=== PATIENT | female | born 1985 | race American Indian/Alaskan Native ===

== ENCOUNTER 2017-03-22 11:51 | Outpatient (CLI) | payer BC ==
--- NOTE | 2017-03-22 12:20 | XRay Report ---
ROUTINE CHEST, TWO VIEWS: Bronchitis. PA and lateral views demonstrate the heart and mediastinal contour to be of normal size and shape. The lungs are clear and fully expanded and the soft tissues and bony structures are normal. IMPRESSION: Normal study.
== END 2017-03-22 11:52 | disposition home or self-care (01) ==
LOC: XRAY 11:51
PROVIDERS: ATTEND Internal Medicine
DX: J20.9 Acute bronchitis, unspecified (principal); J45.909 Unspecified asthma, uncomplicated; F17.200 Nicotine dependence, unspecified, uncomplicated
CPT/HCPCS: 71020

== ENCOUNTER 2017-04-18 09:00 | Emergency (ER) | payer BC ==
[2017-04-18 09:50] LABS: Basophils % (Auto) 1.3 % (0.0-1.8); Eosinophils % (Auto) 2.4 % (0.0-4.3); Hematocrit 38.6 % (30.3-42.9); Hemoglobin 13.1 gm/dl (10.1-14.3); Mean Corpuscular HGB Conc 34 % (30-34); Mean Corpuscular Hemoglobin 28 pg (28-32); Mean Corpuscular Volume 83 fl (79-97); Platelet Count 282 K/mm3 (140-440); Red Blood Count 4.65 M/mm3 (3.65-5.03); Red Cell Distribution Width 14.3 % (13.2-15.2); White Blood Count 6.1 K/mm3 (4.5-11.0)
[2017-04-18 10:03] LABS: Anion Gap 16 mmol/L; BUN/Creatinine Ratio 15; Blood Urea Nitrogen 15 mg/dL (7-17); Calcium 8.6 mg/dL (8.4-10.2); Carbon Dioxide 25 mmol/L (22-30); Chloride 101.8 mmol/L (98-107); Glucose 87 mg/dL (65-100); Potassium 4.4 mmol/L (3.6-5.0); Sodium 138 mmol/L (137-145)
[2017-04-18 12:08] VITALS: BP 131/64
[2017-04-18] MEDS ORDERED: TORADOL IM ONE (12:19)
--- NOTE | 2017-04-18 12:24 | Emergency Department Report ---
ED Chest Pain HPI - General Chief Complaint: Chest Pain Stated Complaint: CHEST PAIN AND BACK PAIN Time Seen by Provider: 04/18/17 12:12 Source: patient Mode of arrival: Ambulatory Limitations: No Limitations - History of Present Illness Initial Comments: Patient is a 31 years old female no significant past medical history is coming with left sided chest pain specifically under the left breast that radiated to her back and going on for month now patient increase with movement and decreased mentation remain is still. Patient was seen by her primary care physician she was given a steroid but no improvement, she had a chest x-ray was repeated because by her primary care physician which was unremarkable per patient report. Patient denied any fever ,shortness of breath ,nausea or vomiting. MD Complaint: chest pain -: week(s) Onset: during rest Pain Location: left chest Severity: moderate Severity scale (0 -10): 10 Quality: sharp, dull Consistency: intermittent Improves With: remaining still Worsens With: movement Other Symptoms: denies: cough, fever, syncope, rash, acid taste in mouth, leg swelling, palpitations, burping - Related Data Home Medications Medication Instructions Recorded Confirmed Last Taken Cyclobenzaprine [Flexeril 10 MG 10 mg PO DAILY 04/18/17 04/18/17 Unknown TAB] Prednisone [predniSONE 5 mg (6-Day 5 mg PO .TAPER 04/18/17 04/18/17 Unknown Pack, 21 Tabs)] traMADol [Ultram] 50 mg PO Q6HR PRN 04/18/17 04/18/17 Unknown Allergies Allergy/AdvReac Type Severity Reaction Status Date / Time Penicillins AdvReac Hives Unverified 04/12/17 08:41 Heart Score - HEART Score History: Moderately suspicious EKG: Normal Age: < 45 Risk factors: No known risk factors Troponin: < normal limit HEART Score: 1 - Critical Actions Critical Actions: 0-3 pts:0.9-1.7%risk of adverse cardiac event.Candidate for discharge ED Review of Systems ROS: Stated complaint: CHEST PAIN AND BACK PAIN Other details as noted in HPI Comment: All other systems reviewed and negative Constitutional: denies: chills, fever ENT: denies: throat pain, dental pain Respiratory: denies: cough, orthopnea, shortness of breath Cardiovascular: chest pain. denies: palpitations, dyspnea on exertion, edema Gastrointestinal: denies: abdominal pain, nausea, vomiting, diarrhea, constipation, hematemesis, melena, hematochezia Musculoskeletal: denies: back pain, joint swelling Neurological: denies: headache, weakness, numbness, paresthesias ED Past Medical Hx - Past Medical History Previous Medical History?: Yes Hx Asthma: Yes - Surgical History Past Surgical History?: No - Social History Smoking Status: Former Smoker Substance Use Type: Alcohol - Medications Home Medications: Home Medications Medication Instructions Recorded Confirmed Last Taken Type Cyclobenzaprine [Flexeril 10 MG 10 mg PO DAILY 04/18/17 04/18/17 Unknown History TAB] Prednisone [predniSONE 5 mg (6-Day 5 mg PO .TAPER 04/18/17 04/18/17 Unknown History Pack, 21 Tabs)] traMADol [Ultram] 50 mg PO Q6HR PRN 04/18/17 04/18/17 Unknown History ED Physical Exam - General Limitations: No Limitations General appearance: alert, in no apparent distress - Head Head exam: Present: atraumatic, normocephalic - Eye Eye exam: Present: normal appearance, PERRL Pupils: Present: normal accommodation - ENT ENT exam: Present: normal exam, normal orophraynx, mucous membranes moist - Neck Neck exam: Present: normal inspection, full ROM. Absent: tenderness, meningismus, lymphadenopathy, thyromegaly - Respiratory Respiratory exam: Present: normal lung sounds bilaterally, chest wall tenderness (under the left breast). Absent: respiratory distress, wheezes, rales, rhonchi, stridor, accessory muscle use, decreased breath sounds - Cardiovascular Cardiovascular Exam: Present: tachycardia - GI/Abdominal GI/Abdominal exam: Present: soft, normal bowel sounds. Absent: distended, tenderness, guarding, rebound - Extremities Exam Extremities exam: Present: normal inspection, normal capillary refill. Absent: tenderness, pedal edema - Back Exam Back exam: Present: normal inspection. Absent: tenderness, CVA tenderness (R), CVA tenderness (L) - Neurological Exam Neurological exam: Present: alert, oriented X3, CN II-XII intact, normal gait - Skin Skin exam: Present: warm, intact, normal color ED Course Vital Signs 04/18/17 04/18/17 04/18/17 09:12 12:07 12:08 Temperature 98.1 F 97.9 F Pulse Rate 102 H 80 Respiratory 20 18 18 Rate Blood Pressure 135/74 Blood Pressure 131/64 [Right] O2 Sat by Pulse 100 99 Oximetry 04/18/17 12:31 Temperature Pulse Rate Respiratory 20 Rate Blood Pressure Blood Pressure [Right] O2 Sat by Pulse Oximetry - Reevaluation(s) Reevaluation #1: 04/18/17 13:13 Patient stated that she is feeling much better after the Toradol ED Medical Decision Making - Lab Data Result diagrams: 04/18/17 09:29 04/18/17 09:29 - EKG Data -: EKG Interpreted by Me Rate: tachycardia - EKG Data Interpretation: no acute changes - Medical Decision Making Patient stated that she is feeling better. Labs are normal except for slightly elevated lipase and is going to see drinking It that's started one month ago as reported by the patient patient is counseled about alcohol abuse. Patient will be discharged home to follow up with her primary care physician. Critical care attestation.: If time is entered above; I have spent that time in minutes in the direct care of this critically ill patient, excluding procedure time. ED Disposition Clinical Impression: Chest pain, Pancreatitis, alcoholic, acute Disposition: DC-01 TO HOME OR SELFCARE Is pt being admited?: No Condition: Stable Instructions: Chest Pain (ED), Pancreatitis (ED) Referrals: ALEXYS URRUTIA MD [Primary Care Provider] - 3-5 Days
[2017-04-18 13:25] LABS: Bilirubin,Urine NEG (Negative); Blood,Urine NEG (Negative); Ketones,Urine NEG (Negative); Leukocyte Esterase,Urine NEG (Negative); Nitrite,Urine NEG (Negative); Protein,Urine <15 mg/dL mg/dL (Negative); Urobilinogen,Urine < 2.0 mg/dL (<2.0)
== END 2017-04-18 13:38 | disposition home or self-care (01) ==
LOC: ED 09:00
DX: K85.20 Alcohol induced acute pancreatitis without necrosis or infection (principal); J45.909 Unspecified asthma, uncomplicated; Z88.0 Allergy status to penicillin
CPT/HCPCS: 36415; 80048; 81001; 83690; 84484; 84703; 85025; 85379; 93005; 93010; 96372; 99284; J1885